=== PATIENT | female | born 1960 | race Caucasian/White ===

== ENCOUNTER 2016-11-29 20:01 | Emergency (ER) | payer SELFPAY ==
[2016-11-29 20:06] VITALS: BP 141/89; BMI 28.0
[2016-11-29] MEDS ORDERED: XYLOCAINE 1 % (PLAIN) ONE (20:37)
[2016-11-29] MEDS ORDERED: XYLOCAINE 1 % (PLAIN) IM ONE (20:37)
--- NOTE | 2016-11-29 21:13 | DR.GENAD ---
HPI - Complaint/Symptoms Chief Complaint:: PT STATES THAT SHE HIT HER RT KNEE ON THE CORNER OF SOME FURNITURE AND SPLIT IT OPEN Self Treatment fo Chief Complaint: PT HAD TETNUS LAST WEEK - Nurses notes reviewed Nurses Notes Review: Yes - Source History Provided: Patient - Mode of Arrival Mode of Arrival: Ambulatory - Timing Onset of Chief Complaint: 11/29/16 PMH - PMH Past Medical History: Yes Past Medical History: Anxiety, Diabetes Past Surgical History: No - Family History History of Family Medical Conditions: Yes Family Medical History: [place], Hypertension - infectious screening Have you traveled outside the country in the last 6 months?: No PE - Vital Signs Vitals: Temperature 98.5 F Pulse Rate 110 Respiratory Rate 18 Blood Pressure 141/89 O2 Sat by Pulse Oximetry 96 - Discharge Plan Condition: Stable Prescriptions: Cephalexin [KEFLEX CAP 500 MG *] 500 mg PO TID #30 cap Ibuprofen [MOTRIN TAB 600 MG *] 600 mg PO TID PRN #20 tab PRN Reason: Pain/Inflammation Tramadol HCl 50 mg PO TID #15 tablet - Follow ups/Referrals Follow ups/Referrals: Kenisha FERRERA [Primary Care Provider] - 3 days - Instructions Instructions: Knee Pain, Laceration Care, Adult, [id number] Additional Instructions: RETURN TO ED IF WORSE. SUTURE OUT IN 10 DAYS.
[2016-11-29] MEDS ORDERED: BACITRACIN ZINC ONE (21:29)
--- NOTE | 2016-11-29 21:40 | RAD ---
Right knee two views Indication: Knee pain post trauma Comparison: None Findings: No acute fracture or malalignment is identified. There is mild degenerative narrowing of th e medial femorotibial compartment. There is no appreciable joint effusion. There is mild prepatellar soft tissue swelling. Impression: Mild prepatellar soft tissue swelling without acute fracture or malalignment. Reported By:
[2016-11-29] MEDS ORDERED: ULTRAM PO ONE (21:46)
[2016-11-29] MEDS ORDERED: KEFLEX CAP 500 MG PO ONE ×2 (21:47→21:50)
[2016-11-29] MEDS ORDERED: MOTRIN TAB 600 MG PO ONE ×2 (21:47→21:50)
[2016-11-29] MEDS ORDERED: ULTRAM ONE ×2 (21:51→21:52)
== END 2016-11-29 21:55 | disposition home or self-care (01) ==
LOC: ER 20:10
DX: S81.011A Laceration without foreign body, right knee, initial encounter (principal); M79.89 Other specified soft tissue disorders; X58.XXXA Exposure to other specified factors, initial encounter; Y92.9 Unspecified place or not applicable
CPT/HCPCS: 12001; 73560; 99282; J2001